=== PATIENT | female | born 1985 | race Caucasian/White ===

== ENCOUNTER 2023-08-22 19:55 | Inpatient (IN) | payer BC ==
[~2023-08-22 19:55] MED LIST: Bupivacaine 0.25% HCL 30 ML VIAL ONE
[2023-08-22] MEDS ORDERED: Misoprostol 200 MCG TAB PR PRN (20:42)
[2023-08-22] MEDS ORDERED: hydrALAZINE 20 MG/ML VIAL SLOW IVP PRN ×3 (20:42→23:54)
[2023-08-22] MEDS ORDERED: fentaNYL 50 mcg/mL 1 mL Vial SLOW IVP PRN (20:42)
[2023-08-22] MEDS ORDERED: Methylergonovine 0.2 MG/ML VIAL IM PRN (20:42)
[2023-08-22] MEDS ORDERED: Ondansetron PF 4 MG/2 ML Vial IVP PRN ×2 (20:42→21:59)
[2023-08-22] MEDS ORDERED: Diphenoxylate HCl/Atropine Tablet PO PRN (20:42)
[2023-08-22] MEDS ORDERED: Promethazine HCl 25 MG/ML VIAL IM PRN ×2 (20:42→21:59)
[2023-08-22] MEDS ORDERED: Acetaminophen 500 MG TAB PO PRN (20:42)
[2023-08-22] MEDS ORDERED: Carboprost 250 MCG/ML AMP IM PRN (20:42)
[2023-08-22] MEDS ORDERED: Tranexamic Acid 1,000 MG/10 ML VIAL IVP PRN (20:42)
[2023-08-22] MEDS ORDERED: Oxytocin 30 units/NS 500 ML 500 ML IV SCH (20:45)
[2023-08-22 20:52] VITALS: BMI 34.3
[2023-08-22 20:58] LABS: Hematocrit 35.9 % (34.9-44.5); Hemoglobin 13.1 g/dL (12.0-15.5); Mean Corpuscular HGB CONC 36.5 g/dL (32.0-36.0); Mean Corpuscular Hemoglobin 32.8 pg (27.0-33.0); Mean Platelet Volume 11.2 fl (7.4-10.4); Platelet Count 162 10x3/uL (150-450); RBC Distribution Width 12.9 % (11.5-14.5); Red Blood Cell (RBC) Count 3.99 10x6/uL (3.90-5.03); White Blood Cell (WBC) Count 9.2 10x3/uL (3.5-10.5)
[2023-08-22] MEDS ORDERED: HYDROcodone/Acetaminophen 5/325 mg Tablet PO PRN (20:58)
[2023-08-22] MEDS ORDERED: Acetaminophen/Codeine 30-300mg Tablet PO PRN (20:58)
[2023-08-22] MEDS ORDERED: Lidocaine 1% (PF) 30 ML VIAL SC PRN (20:58)
[2023-08-22] MEDS: Lactated Ringer's 1,000 ML IV SCH (21:50)
[2023-08-22] MEDS: fentaNYL/Ropivacaine Epidural 100 ML ONE (21:54)
[2023-08-22] MEDS ORDERED: Lactated Ringer's 500 ML IV PRN (21:59)
[2023-08-22] MEDS ORDERED: Acetaminophen 325 MG TAB PO PRN (21:59)
[2023-08-22] MEDS ORDERED: diphenhydrAMINE 50 MG/ML VIAL IVP PRN (21:59)
[2023-08-22] MEDS ORDERED: Naloxone HCl 0.4 mg/ml Vial IVP PRN ×2 (21:59)
[2023-08-22] MEDS ORDERED: ePHEDrine Sulfate 50 MG/10 ML VIAL SLOW IVP PRN (21:59)
[2023-08-22] MEDS ORDERED: Moisturizing Cream (Eucerin) 113 GM JAR TOP PRN (21:59)
[2023-08-22] MEDS ORDERED: Communication Order-Pharmacy FS SCH (22:00)
[2023-08-22] MEDS ORDERED: fentaNYL 2 mcg/Ropivacaine 0.2% Epidural 100 ML CADD EPIDURAL SCH (22:00)
[2023-08-22] MEDS ORDERED: Bisacodyl 10 MG SUPP PR PRN (23:53)
[2023-08-22] MEDS ORDERED: Milk Of Magnesia 30 ML UDCUP PO PRN ×2 (23:53→23:54)
[2023-08-22] MEDS ORDERED: diphenhydrAMINE 25 MG CAP PO PRN (23:54)
[2023-08-22] MEDS ORDERED: Preparation H Ointment 28 GM TUBE PR PRN (23:54)
[2023-08-22] MEDS ORDERED: Lanolin Ointment 7 GM TUBE TOP PRN (23:54)
[2023-08-23 01:03] LABS: Hep B Surf Ag - L&D Non-Reactive S/CO (NonReactive)
[2023-08-23 01:04] LABS: Syphilis Antibody Nonreactive (Nonreactive); Syphilis Antibody Index 0.07 S/CO (<1.00 Non-Reactive)
[2023-08-23] MEDS: Boostrix 0.5 ML (Tdap) VIAL (>/=7 yrs of age) IM ONE (02:43)
[2023-08-23] MEDS: Measles/Mumps/Rubella 10 MCG/0.5 ML VIAL SC ONE (02:43)
[2023-08-23] MEDS ORDERED: HYDROcodone/Acetaminophen 5/325 mg Tablet PO PRN (03:40)
[2023-08-23] MEDS ORDERED: Zolpidem Tartrate 5 MG TAB PO PRN (03:40)
[2023-08-23 04:02] LABS: Hematocrit 32.5 % (34.9-44.5); Hemoglobin 11.7 g/dL (12.0-15.5); Mean Corpuscular Hemoglobin 32.3 pg (27.0-33.0); Mean Corpuscular Volume 89.8 fl (81.6-98.3); Mean Platelet Volume 10.8 fl (7.4-10.4); Platelet Count 151 10x3/uL (150-450); RBC Distribution Width 12.9 % (11.5-14.5); Red Blood Cell (RBC) Count 3.62 10x6/uL (3.90-5.03); White Blood Cell (WBC) Count 12.7 10x3/uL (3.5-10.5)
[2023-08-23] MEDS: Ibuprofen 800 MG TAB PO PRN ×2 (04:38→20:40)
[2023-08-23] MEDS ORDERED: Ferrous Sulfate 325 MG TAB PO SCH (08:00)
[2023-08-23] MEDS: Ferrous Sulfate 325 MG TAB PO SCH (08:13)
[2023-08-23] MEDS ORDERED: Docusate 100 MG CAP PO SCH (09:00)
[2023-08-23] MEDS: Prenatal Vitamin 1 TAB PO SCH (09:23)
[2023-08-23] MEDS: Docusate 100 MG CAP PO SCH (09:23)
[2023-08-24 08:29] VITALS: BP 125/67; TEMP 98.3
== END 2023-08-24 10:15 | disposition home or self-care (01) | DRG 806 ==
LOC: CSHLD/OP 19:55 → CSHLD 20:42 → CSHPP 08-23 02:30
PROVIDERS: ADMIT Student in an Organized Health Care Education/Training Program; ATTEND Student in an Organized Health Care Education/Training Program
PROC: 10E0XZZ Delivery of Products of Conception, External Approach (ICD-10-PCS; principal; 2023-08-23)
PROC: 3E0234Z Introduction of Serum, Toxoid and Vaccine into Muscle, Percutaneous Approach (ICD-10-PCS; 2023-08-23)
DX: O48.0 Post-term pregnancy (principal); O36.0130 Maternal care for anti-D [Rh] antibodies, third trimester, not applicable or unspecified; Z37.0 Single live birth; Z3A.40 40 weeks gestation of pregnancy; Z98.890 Other specified postprocedural states; Z80.3 Family history of malignant neoplasm of breast; O69.81X0 Labor and delivery complicated by cord around neck, without compression, not applicable or unspecified
CPT/HCPCS: 36415; 51701; 85027; 85461; 86780; 86850; 86870; 86900; 86901; 87340; 90384; 96372; 99285; J0665; J7120